=== PATIENT | female | born 1930 | race Caucasian/White ===

== ENCOUNTER → 2017-10-27 | Outpatient (CLI) | payer MEDICARE, OTHER ==
--- NOTE | 2017-10-27 11:31 | Diagnostic Imaging Report ---
INDICATION: Pneumonia. TIME OF EXAM: 11:42 AM. COMPARISON: No prior chest radiographs are available for comparison. Comparison is made with the prior CT study from 10/29/2015. FINDINGS: Multiple nodular opacities are identified throughout both lungs, similar to the CT study from 10/29/2015. There is also some airspace density in the right upper lobe as well as some consolidation in the right middle lobe. There is some patchy airspace density in the left midlung. This may represent superimposed pneumonia. No significant effusion is seen. There is no pneumothorax. IMPRESSION: Bilateral pulmonary nodules, similar to CT study from 10/29/2015. There are some patchy airspace densities bilaterally, suggestive of superimposed pneumonia. Dictated by: Dictated on workstation # [id number]
== END ==
LOC: RAD 11:14
PROVIDERS: ATTEND Nurse Practitioner Family
DX: J18.9 Pneumonia, unspecified organism (principal); R91.8 Other nonspecific abnormal finding of lung field
CPT/HCPCS: 71046